=== PATIENT | female | born 1985 | race American Indian/Alaskan Native ===

== ENCOUNTER 2017-10-19 11:10 | Emergency (ER) | payer BC ==
[2017-10-24 13:20] VITALS: BP 143/78; PULSE 92
== END 2017-10-19 11:49 | disposition home or self-care (01) ==
LOC: C.EROB 11:10
DX: O16.3 Unspecified maternal hypertension, third trimester (principal); Z3A.36 36 weeks gestation of pregnancy

== ENCOUNTER 2017-10-31 06:20 | Inpatient (IN) | payer BC, OTHER ==
[2017-10-31] MEDS ORDERED: cefOXitin IV 2 gm in Saline 2 GM/50 ML BAG IVPB ONE (07:14)
[2017-10-31] MEDS ORDERED: Sodium Citrate/Citric Acid 15 ml Sol ONE (07:14)
[2017-10-31] MEDS ORDERED: Oxytocin 20 units in LR 2,000 ML IV ONE (07:14)
--- NOTE | 2017-10-31 07:23 | OBADHP ---
Datetime: 10/31/2017 07:09 Pelvic Type - PN: Adequate Extremities - PN: Normal Abdomen - PN: Normal Back - PN: Normal Breast - PN: Not Done Lungs - PN: Normal Heart - PN: Normal Thyroid - PN: Normal Neurologic - PN: Normal HEENT - PN: Normal General - PN: Normal Membranes, Provider: Intact Vital Signs Provider: Reviewed IP Chief Complaint: Scheduled Section Genitourinary Exam: Normal DTRs - PN: Normal EGA AdmitDate IP: 38.0 IP Adm Impression: Term, intrauterine ; Intact Membranes IP Admit Plan: Admit to unit; Initiate Section protocol
[2017-10-31 07:27] VITALS: BMI 39.3
[2017-10-31] MEDS ORDERED: Lactated Ringer's 1,000 ML IV ONE (07:27)
[2017-10-31] MEDS ORDERED: Morphine 1 mg/ml preservative-free Inj(Duramorph) ONE (07:32)
[2017-10-31] MEDS ORDERED: Sodium Citrate/Citric Acid 15 ml Sol PO STA (07:58)
[2017-10-31] MEDS ORDERED: cefOXitin IV 2 gm in Dextrose 2 GM/50 ML BAG IVPB ONE (08:00)
[2017-10-31 08:01] LABS: BLOOD UREA NITROGEN 8 mg/dL (7-17); GFR AFRICAN-AMERICAN > 60; GFR NON-AFRICAN AMERICAN > 60
[2017-10-31 08:02] LABS: ALBUMIN 3.6 g/dL (3.5-5.0); ALT/SGPT 25 U/L (9-52); AST/SGOT 26 U/L (14-36); CALCIUM 9.4 mg/dl (8.6-10.4)
[2017-10-31 08:04] LABS: BASO % 0.3 % (0.0-2.0); EOS % 0.8 % (0.0-4.0); HEMOGLOBIN 11.2 g/dL (11.0-16.0); LYMPH % 19.3 % (20.0-40.0); MEAN CELL VOLUME 89.3 fL (81.0-99.0); MEAN CORPUSCULAR HEMOGLOBIN 30.5 pg (27.0-31.0); MEAN CORPUSCULAR HGB CONC 34.1 g/dL (33.0-37.0); MEAN PLATELET VOLUME 9.5 fL (7.2-11.7); MONO # 0.5 K/uL (0.0-0.8); MONO % 10.4 % (0.0-10.0); NEUT # 3.5 K/uL (1.8-7.0); NEUT % 69.2 % (50.0-75.0); NRBC % 0.1 % (0.0-2.0); RBC 3.69 Mil/uL (3.80-5.20); WHITE BLOOD COUNT 5.1 K/uL (4.8-10.8)
--- NOTE | 2017-10-31 08:06 | OBHP ---
Datetime: 10/31/2017 07:09 IP Adm Impression: Term, intrauterine ; Intact Membranes IP Admit Plan: Admit to unit; Initiate Section protocol Admit Comment, IP Provider: 32 yo female with an IUP at 38 weeks and Hx of CHTN controlled on meds Previous C/S x 1 and for repeat C/S PMHx only significant for CHTN PSHx C/S x 1 and Ovarian cystectomy Meds Labetolol 200 mg po BID and took a dose this AM with a sip of water Social Hx Negative x 3 NKDA Admitted for repeat C/S per Dr. Guzman Pre-op orders done Pelvic Type - PN: Adequate Extremities - PN: Normal Abdomen - PN: Normal Back - PN: Normal Breast - PN: Not Done Lungs - PN: Normal Heart - PN: Normal Thyroid - PN: Normal Neurologic - PN: Normal HEENT - PN: Normal General - PN: Normal Presentation-Admit: Vertex FHR - Baseline A Provider: 130 Membranes, Provider: Intact Contraction Comments Provider: Ocassional Gestation - Est Wks by US: 38.0 EGA AdmitDate IP: 38.0 Vital Signs Provider: Reviewed IP Indication for Induction: Not Applicable IP Chief Complaint: Scheduled Section NICHD Variability Prov Fetus A: Moderate 6-25bpm NICHD Accel Fetus A IP Provider: [id number] FHR Category Provider Fetus A: Category I NICHD Decel Fetus A IP Provider: None Genitourinary Exam: Normal DTRs - PN: Normal
[2017-10-31] MEDS ORDERED: Lidocaine Hydrochloride 10 ML INJ ONE (09:06)
[2017-10-31 09:14] LABS: SQUAMOUS EPITHIAL 1 /hpf (0-5); URINE BACTERIA FEW (<OCC); URINE BILIRUBIN NEGATIVE (NEGATIVE); URINE BLOOD 1+ (NEGATIVE); URINE CLARITY Clear (Clear); URINE COLOR Yellow (YELLOW); URINE GLUCOSE (UA) NORMAL (Normal); URINE LEUKOCYTE ESTERASE NEG Leu/uL (Negative); URINE PROTEIN NEGATIVE (NEGATIVE); URINE UROBILINOGEN NORMAL mg/dL (0.2-1.0)
[2017-10-31] MEDS ORDERED: Phytonadione 1 mg/0.5 ml Inj (Neonatal) ONE (10:09)
[2017-10-31] MEDS ORDERED: Erythromycin 0.5% Ophth Oint 1 APPLIC/3.5 G ONE (10:09)
[2017-10-31] MEDS ORDERED: Oxytocin 30 UNIT 500 ML IV ONE (10:29)
[2017-10-31] MEDS ORDERED: DiphenhydrAMINE 50 mg/ml Inj IVP PRN (11:25)
[2017-10-31] MEDS ORDERED: Oxytocin 30 UNIT 30 UNITS/500 ML BAG IV ONE (11:45)
[2017-10-31] MEDS ORDERED: cefOXitin 2 GM in Sodium Chloride 0.9% 50 ML IV SCH (16:00)
[2017-10-31 16:29] LABS: BASO % 0.1 % (0.0-2.0); EOS % 0.2 % (0.0-4.0); HEMOGLOBIN 10.4 g/dL (11.0-16.0); LYMPH # 0.8 K/uL (1.0-4.3); LYMPH % 9.9 % (20.0-40.0); MEAN CELL VOLUME 89.4 fL (81.0-99.0); MEAN CORPUSCULAR HEMOGLOBIN 30.5 pg (27.0-31.0); MEAN CORPUSCULAR HGB CONC 34.2 g/dL (33.0-37.0); MEAN PLATELET VOLUME 8.8 fL (7.2-11.7); MONO # 0.5 K/uL (0.0-0.8); MONO % 5.6 % (0.0-10.0); NEUT # 7.2 K/uL (1.8-7.0); NEUT % 84.2 % (50.0-75.0); NRBC % 0.1 % (0.0-2.0); PLATELET COUNT 183 K/uL (130-400); RBC 3.41 Mil/uL (3.80-5.20); RED CELL DISTRIBUTION WIDTH 13.1 % (11.5-14.5); WHITE BLOOD COUNT 8.6 K/uL (4.8-10.8)
[2017-10-31 17:06] LABS: LYMPHOCYTE 6 % (20-40); MONOCYTE 1 % (0-10); NEUTROPHIL 93 % (50-75); TOTAL CELLS COUNTED 100
[2017-10-31 17:07] LABS: PLATELET ESTIMATE NORMAL (NORMAL)
[2017-10-31] MEDS: Simethicone 80 mg Chewtab PO SCH ×2 (18:16→22:30)
[2017-10-31] MEDS: cefOXitin 2 GM in Sodium Chloride 0.9% 50 ML IV SCH (19:58)
--- NOTE | 2017-10-31 20:26 | HP ---
Copied To: Ernie Paez MD Attending MD: Ernie Paez MD HISTORY OF PRESENT ILLNESS: Patient is a 32-year-old female, 3, para 1 with a due date of 11/14/2017 at 38 weeks 5 days, previous section x1, was admitted complaining of contractions since 4 a.m. this morning. She denies any leakage of fluids. She denies any vaginal bleeding. Patient's past obstetrical history is significant for a section x1 and one termination of . MEDICAL ISSUES: Also, significant for history of hypertension, for which the patient is currently on labetalol 200 mg b.i.d. CURRENT MEDICATIONS: Labetalol 200 mg b.i.d. PHYSICAL EXAMINATION: VITAL SIGNS: Blood pressure is 129/84, respiratory rate is 20, and temperature is 98.8. HEENT: Head, ears, nose, and throat examination are within normal. CHEST: Clear. CARDIAC: Reveals normal heart sounds without any murmurs. LUNGS: Clear. BREASTS: No masses. ABDOMEN: Symphyseal fundal height 38 cm, longitudinal lie vertex. heart tones are normal. PELVIC: Cervix is 2 cm, 50%, -2. ADMITTING DIAGNOSES: Intrauterine at 38 weeks, in labor, chronic hypertension, PLAN: To perform a lower segment section. Prior to being scheduled for the surgical procedure, the patient underwent an informed consent, discussion, and education session with me in the hospital lasting approximately 45 minutes during which time I explained to her in understandable terms the following: The nature and extent of the disease process, the nature and extent of the contemplated operation. I also explained to her the risks and potential complications of the operative procedures to include but not limited to infection, hemorrhage, deep vein thrombosis, atelectasis, pneumonia, pulmonary embolism, damage to the bladder, damage to the ureter, renal insufficiency, renal failure, wound infection, wound dehiscence, incisional hernia, keloid formation, damage to large and small intestines, damage to the inferior vena cava and aorta requiring extensive repair, anesthesia complications, electrolyte imbalance, possibility of , fluid overload, cerebral edema and embolism, and other complications that were discussed but are not listed above. I also discussed with the patient the anticipated benefits and results of the surgery including the conservative estimate of the successful outcome. I discussed with the patient what the operation would not accomplish. I informed the patient of the possibility of unanticipated pathology requiring a more extensive procedure. All the questions from the patient were encouraged, welcomed, and answered to her satisfaction. The patient had been given the opportunity to store her own blood for use and autologous blood transfusion prenatally and she had declined. Ernie Paez MD
--- NOTE | 2017-10-31 22:08 | OP ---
Copied To: Ernie Paez MD Attending MD: Ernie Paez MD PROCEDURE DATE: 10/31/2017 PREOPERATIVE DIAGNOSES: Intrauterine at 38 weeks, in labor, previous section x1, and chronic hypertension. POSTOPERATIVE DIAGNOSES: Intrauterine at 38 weeks in labor, previous section x1, and chronic hypertension. PROCEDURE: Lower segment section. FINDINGS: Extensive adhesions involving the uterus and posterior rectus sheath which had to be lysed to get access to the lower segment. The tubes and ovaries are normal. The patient had a live female infant. Apgars 9 at 1 minute and 9 at 5 minutes with normal tubes and ovaries. SURGEON: Ernie Paez MD GROCERY BUYER: Harry Cornell MD ESTIMATED BLOOD LOSS: 500 mL COMPLICATIONS: Nil. DESCRIPTION OF PROCEDURE: After the risks, benefits, and alternatives of the planned procedures, including but not limited to infection, hemorrhage, deep vein thrombosis, atelectasis, pneumonia, pulmonary embolism, damage to the bladder, damage to the ureter, renal insufficiency, renal failure, wound infection, wound dehiscence, incisional hernia, keloid formation, damage to the large and small intestines, damage to the inferior vena cava and the aorta requiring extensive repair, anesthesia complications, electrolyte imbalance, possibility of , fluid overload, cerebral edema and embolism, and other complications that were discussed, but are not listed above, have been explained to the patient and all her questions answered. Informed consent was obtained. Patient was taken to the operating room in a stable condition. Under suitable level of spinal analgesia, she was prepped and draped in a sterile fashion after having been placed in a supine position. The abdomen was entered through a Pfannenstiel type incision, carried through the subcutaneous tissues to the fascia. Fascia was opened transversely and dissected off the rectus abdominis musculature. The rectus abdominis musculature was then in the midline to reveal the parietal peritoneum, which was entered sharply and incised superiorly and inferiorly. Extensive adhesions involving the uterus and posterior rectus sheath were then lysed to allow for access into the lower uterine segment. The lower uterine segment was then entered through a curvilinear incision. The surgeon's fingers were inserted into the lower uterine segment to grasp the 's head, which was lying in a right occipital anterior position. The head was easily delivered. Nose and mouth were suctioned free of amniotic fluid, and the remainder of the was delivered without any difficulty. Cord was doubly clamped and cut, and the baby was handed over to the pediatricians who were in attendance. Cord blood was collected with Pitocin running. Placenta was manually removed. The endometrium was then cleaned and freed of remaining membranes and clots. The uterine incision was then closed in layers with the first layer being a running interlocking layer using #1 chromic and the second layer being used to imbricate the first layer. Hemostasis was good. Serosa was then re-approximated using . Bladder peritoneum was then reapproximated using a running suture of 2-0 chromic. There was good hemostasis. Abdomen was irrigated using copious amounts of saline. Saline was evacuated. FloSeal was applied over the excision site again with good hemostasis. Abdomen was then closed in layers with 0 chromic to the parietal peritoneum. Rectus muscles were re-approximated using interrupted sutures of 0 chromic. Fascia was reapproximated using two separate running sutures of 0 Vicryl to meet in the midline. Subcutaneous tissues were reapproximated using interrupted sutures of 0 plain, and the initial skin incision was reapproximated using 4-0 Vicryl in a subcuticular fashion. Estimated blood loss for the procedure was 500 mL. Pad, needle, and instruments counts were correct x2. There were no complications. Ernie Paez MD
[2017-11-01] MEDS: cefOXitin 2 GM in Sodium Chloride 0.9% 50 ML IV SCH (04:57)
[2017-11-01 08:30] LABS: HEMOGLOBIN 10.3 g/dL (11.0-16.0); MEAN CELL VOLUME 89.7 fL (81.0-99.0); MEAN CORPUSCULAR HGB CONC 34.5 g/dL (33.0-37.0); MEAN PLATELET VOLUME 8.9 fL (7.2-11.7); RBC 3.32 Mil/uL (3.80-5.20); RED CELL DISTRIBUTION WIDTH 12.9 % (11.5-14.5); WHITE BLOOD COUNT 8.7 K/uL (4.8-10.8)
--- NOTE | 2017-11-01 09:36 | CP.PCM.PN ---
Subjective - Date & Time of Evaluation Date of Evaluation: 11/01/17 Time of Evaluation: 09:35 - Subjective Subjective: Pt was seen and examined this morning at bedside. She states that she used 1 pad overnight and that the vaginal bleeding has been improving. Pt denies any dizziness, lightheadedness, weakness, or fainting spells. She admits to passing gas, denies having a BM. She is tolerating her diet and denies associated nausea or vomiting. She also denies fevers, chills, headache, chest pain, palpitations, constipation, diarrhea. She is breast feeding the baby, and denies any issues with breast feeding. Objective - Vital Signs/Intake and Output Vital Signs (last 24 hours): Temp Pulse Resp BP Pulse Ox 97.0 F L 80 18 132/82 99 10/31/17 12:15 10/31/17 12:15 10/31/17 12:15 10/31/17 12:15 10/31/17 12:15 - Medications Medications: Current Medications Bisacodyl (Dulcolax) 10 mg PO ONCE ONE Stop: 11/01/17 10:32 Diphenhydramine HCl (Benadryl) 25 mg IVP Q6 PRN PRN Reason: Itching / Pruritus Stop: 11/01/17 11:26 Docusate Sodium (Colace) 100 mg PO BID [facility] Last Admin: 10/31/17 18:14 Dose: Not Given Enoxaparin Sodium (Lovenox) 40 mg SC DAILY [facility] Lactated Ringer's (Lactated Ringer's) 1,000 mls @ 999 mls/hr IV .Q1H1M ONE Last Admin: 10/31/17 07:54 Dose: 999 mls/hr Cefoxitin Sodium 2 gm/ Sodium (Chloride) 50 mls @ 100 mls/hr IV Q8H HODA PRN Reason: Protocol Stop: 11/01/17 12:29 Last Admin: 11/01/17 04:57 Dose: 100 mls/hr Ibuprofen (Motrin Tab) 600 mg PO Q6H PRN PRN Reason: Pain, Mild (1-3) Ketorolac Tromethamine (Toradol) 30 mg IVP ONCE PRN PRN Reason: Pain, Mild (1-3) Stop: 11/01/17 12:42 Oxycodone/Acetaminophen (Percocet 5/325 Mg Tab) 1 tab PO Q4H PRN PRN Reason: Pain, moderate (4-7) Stop: 11/03/17 10:30 Multivit/Folic Acid/Iron () 1 tab PO DAILY [facility] Sennosides (Senokot Tab) 17.2 mg PO HS [facility] Last Admin: 10/31/17 22:30 Dose: 17.2 mg Simethicone (Mylicon Chew Tab) 80 mg PO QID [facility] Last Admin: 10/31/17 22:30 Dose: 80 mg - Labs Labs: 11/01/17 08:24 10/31/17 07:42 - Constitutional Appears: Well, Non-toxic, No Acute Distress - Head Exam Head Exam: ATRAUMATIC, NORMOCEPHALIC - Eye Exam Eye Exam: EOMI, Normal appearance Pupil Exam: NORMAL ACCOMODATION - Respiratory Exam Respiratory Exam: Clear to Ausculation Bilateral, NORMAL BREATHING PATTERN - Cardiovascular Exam Cardiovascular Exam: REGULAR RHYTHM, +S1, +S2 - GI/Abdominal Exam GI & Abdominal Exam: Normal Bowel Sounds. absent: Distended, Guarding, Rigid, Tenderness - Exam External exam: NORMAL EXTERNAL EXAM Bimanual exam: absent: Adenexal Mass, Cervical Motion Tendernes Additional comments: Minimal bleeding noted on bi-manual exam with no clots noted. - Neurological Exam Neurological Exam: Alert, Awake, Oriented x3 - Psychiatric Exam Psychiatric exam: Normal Affect, Normal Mood - Skin Skin Exam: Dry, Intact, Normal Color, Warm Assessment and Plan - Assessment and Plan (Free Text) Assessment: 32 yo F with pmhx of CHTN who presented for scheduled c/s POD 1. Plan: - Bimanual vaginal exam showed minimal bleeding with no clots present. - VSS, no tachycardia or hypotension - Cont fluid resuscitation - Cont to monitor H&H - Further recs per Dr. Paez
[2017-11-01] MEDS: Simethicone 80 mg Chewtab PO SCH (10:01)
[2017-11-01] MEDS: Enoxaparin 40 mg Syringe SC SCH (10:05)
[2017-11-01] MEDS: Oxycodone/Acetaminophen 5/325 mg Tab PO PRN ×2 (10:10→19:17)
[2017-11-01] MEDS ORDERED: Bisacodyl 5mg EC Tab PO ONE (10:31)
[2017-11-02] MEDS: Enoxaparin 40 mg Syringe SC SCH (10:49)
[2017-11-02] MEDS: Simethicone 80 mg Chewtab PO SCH ×4 (10:49→22:25)
[2017-11-02] MEDS: Prenatal Multivit/Folic Acid/Iron Tab PO SCH (10:50)
--- NOTE | 2017-11-02 16:29 | OBHP ---
Datetime: 10/31/2017 07:09 EGA AdmitDate IP: 38.0 Datetime: 10/19/2017 11:17 IP Adm Impression: Term, intrauterine ; No Active Labor IP Admit Plan: Discharge home Admit Comment, IP Provider: 32 y.o. , ODILON 11/14/17, EGA 36w 2d chronic HTN, previous C/S - r eferred by PMD for NST. (+) AFM; denies LOF, VB, CT. care: Dr. Sanchez: Chronic HTN on labeta lol PMHx CHTN PSHx C/S x 1 and Ovarian cystectomy Meds Labetolol 200 mg po BID and took a dose this AM with a sip of water Social Hx Negative x 3 NKDA P.E.: WD in NAD Assessment: 32 y.o. P1011, 36w 2d, prev C/S, chronic HTN - well controlled. Category 1 tracing. Cl inically stable. Plan 1) Discharge home 2) Keep scheduled appointments with Dr. Sanchez - as per Dr. Sanchez Pelvic Type - PN: Not Done Extremities - PN: Normal Abdomen - PN: Normal Back - PN: Normal Breast - PN: Not Done Lungs - PN: Normal Heart - PN: Normal Thyroid - PN: Not Done Neurologic - PN: Normal HEENT - PN: Normal General - PN: Normal FHR - Baseline A Provider: 135 Contraction Comments Provider: occasional Comments, ACOG Physical Exam: Abdomen: Gravid. Soft. Non tender in all quadrants All other systems reviewed and are negative Gestation - Est Wks by US: 36w 2d Vital Signs Provider: Reviewed; Within Normal Limits IP Chief Complaint: evaluation NICHD Variability Prov Fetus A: Moderate 6-25bpm NICHD Accel Fetus A IP Provider: [id number] FHR Category Provider Fetus A: Category I NICHD Decel Fetus A IP Provider: None Dilatation, Provider: deferred Genitourinary Exam: Not Done DTRs - PN: Normal
--- NOTE | 2017-11-02 22:54 | PN ---
Copied To: Ernie Paez MD Attending MD: Ernie Paez MD DATE: 11/02/2017 SUBJECTIVE: The patient has no complaints. OBJECTIVE: VITAL SIGNS: Stable. She is afebrile. ABDOMEN: Soft. Fundus is firm. GENITOURINARY: Lochia is scant. EXTREMITIES: Nontender with no evidence of DVT. CHEST: Clear. CARDIAC: Reveals normal heart sounds without any murmurs. LUNGS: Clear. ASSESSMENT: The patient is status post section day #2. PLAN: To continue ambulation and anticipate discharge home tomorrow on Keflex 500 mg t.i.d. x7 days and Tylenol No. 3 two tablet 4 hourly p.r.n. for a total of 40 tablets. To be followed up in the office in one week. Ernie Paez MD
[2017-11-03 00:24] VITALS: RESP 20
[2017-11-03 08:24] VITALS: BP 140/87; PULSE 95; TEMP 99; O2SAT 100
[2017-11-03] MEDS: Enoxaparin 40 mg Syringe SC SCH (10:55)
[2017-11-03] MEDS: Simethicone 80 mg Chewtab PO SCH ×2 (10:55→13:30)
[2017-11-03] MEDS: Prenatal Multivit/Folic Acid/Iron Tab PO SCH ×2 (11:30→11:47)
== END 2017-11-03 15:50 | disposition home or self-care (01) | DRG 765 ==
LOC: C.4D 06:20 → C.4M 12:09
PROVIDERS: ADMIT Obstetrics & Gynecology Reproductive Endocrinology; ATTEND Obstetrics & Gynecology Reproductive Endocrinology
PROC: 10D00Z1 Extraction of Products of Conception, Low, Open Approach (ICD-10-PCS; principal; 2017-10-31)
DX: O34.211 Maternal care for low transverse scar from previous cesarean delivery (principal); O10.92 Unspecified pre-existing hypertension complicating childbirth; Z3A.38 38 weeks gestation of pregnancy; Z37.0 Single live birth